=== PATIENT | male | born 2000 | race Hispanic/Latino ===

== ENCOUNTER 2023-05-26 16:58 | Emergency (ER) | payer SELFPAY ==
[2023-05-26 17:00] VITALS: BP 140/79; PULSE 74; RESP 18; TEMP 36.7; O2SAT 98; BMI 31.7
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
[2023-05-26] MEDS: Ibuprofen 600 MG Tablet PO (20:55)
== END 2023-05-26 20:58 | disposition home or self-care (01) ==
PROVIDERS: Emergency Provider Student in an Organized Health Care Education/Training Program; Visit Provider Student in an Organized Health Care Education/Training Program
DX: S80.01XA Contusion of right knee, initial encounter (principal); R07.89 Other chest pain; V89.2XXA Person injured in unspecified motor-vehicle accident, traffic, initial encounter; Y92.410 Unspecified street and highway as the place of occurrence of the external cause
CPT/HCPCS: 71046; 99283